=== PATIENT | female | born 2000 | race Caucasian/White ===

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

== ENCOUNTER → 2020-05-16 | Outpatient (CLI) | payer OTHER ==
[2020-05-16 14:57] LABS: Campylobacter Sp Not Detected (NOT DETECT); Cryptosporidium Not Detected (NOT DETECT); Cyclospora Cayetanensis Not Detected (NOT DETECT); E. Coli O157 Not Detected (NOT DETECT); Entamoeba Histolytica Not Detected (NOT DETECT); Enteroaggregative E. coli-EAEC Not Detected (NOT DETECT); Enteropathogenic E. coli-EPEC Detected (NOT DETECT); Enterotoxigenic E. coli-ETEC Not Detected (NOT DETECT); Plesiomonas Shigelloides Not Detected (NOT DETECT); Salmonella Sp Not Detected (NOT DETECT); Shiga Toxin-prod E. coli-STEC Not Detected (NOT DETECT); Shigella/Enteroin E. coli-EIEC Not Detected (NOT DETECT); Vibrio Cholerae Not Detected (NOT DETECT); Vibrio Sp Not Detected (NOT DETECT); Yersinia Enterocolitica Not Detected (NOT DETECT)
[2020-05-16 14:58] LABS: Adenovirus F 40/41 Not Detected (NOT DETECT); Astrovirus Not Detected (NOT DETECT); Giardia Lamblia Not Detected (NOT DETECT); Norovirus GI/GII Not Detected (NOT DETECT); Rotavirus A Not Detected (NOT DETECT); Sapovirus Not Detected (NOT DETECT)
== END ==
LOC: LAB EV 07:12
PROVIDERS: Physician Assistant
DX: R19.7 Diarrhea, unspecified (principal); R07.89 Other chest pain
CPT/HCPCS: 0097U; 87324; 87338

== ENCOUNTER → 2020-09-11 | Outpatient (CLI) | payer OTHER ==
[2020-09-13 14:36] LABS: CORONAVIRUS (COVID19) CSH-NRL Negative (Negative)
== END ==
LOC: LAB SHORT 12:56 → LAB EV 12:56
PROVIDERS: Nurse Practitioner Family
DX: Z20.828 Contact with and (suspected) exposure to other viral communicable diseases (principal)
CPT/HCPCS: U0003

== ENCOUNTER → 2023-02-13 | Outpatient (CLI) | payer OTHER | LOC: PLD 07:52 → LAB SHORT 07:52 | DX: D22.5 Melanocytic nevi of trunk (principal) | CPT/HCPCS: 88305 ==

== ENCOUNTER 2023-03-31 02:28 | Day surgery (SDC) | payer OTHER ==
[~2023-03-31 02:28] MED LIST changes: +AMIT25 PO; +FLUOXETINE HCL60 MG PO; +VITAMIN D32000 UNI1 PO; +[UNRECOGNIZED DRUG - OTHER] IV
[2023-03-31 13:40] VITALS: BP 117/73
[2023-03-31] MEDS ORDERED: PROZAC40 MG PO (14:00)
[2023-03-31 14:52] VITALS: BP 109/62
[2023-03-31 15:20] VITALS: BP 105/66
[2023-03-31 15:21] VITALS: BP 101/71
[2023-03-31 15:38] VITALS: BP 112/66
== END 2023-03-31 16:35 | disposition home or self-care (01) ==
LOC: ATC 02:28
DX: D83.9 Common variable immunodeficiency, unspecified (principal)
CPT/HCPCS: 96365; 96375; J1200; J1569; J2920